=== PATIENT | male | born 1995 | race Caucasian/White ===

== ENCOUNTER 2022-05-14 20:01 | Emergency (ER) | payer OTHER ==
[~2022-05-14] VITALS: Ht 182.9 cm; Wt 98.2 kg
[~2022-05-14 20:01] MED LIST: PENI500T2 PO
[2022-05-14 20:18] VITALS: BP 119/72
[2022-05-14 20:24] LABS: BASOPHILS % (AUTO) 0.7 % (0-1); EOSINOPHILS # (AUTO) 0.3 X10'3 (0-0.9); EOSINOPHILS % (AUTO) 5.7 % (0-6); HEMATOCRIT 43.6 % (42.0-52.0); HEMOGLOBIN 15.3 g/dl (14.0-17.9); LYMPHOCYTES # (AUTO) 1.9 X10'3 (1.1-4.8); MEAN CORPUSCULAR HEMOGLOBIN 32.7 PG (27.0-31.0); MEAN CORPUSCULAR HGB CONC 35.1 g/dL (33.0-36.5); MEAN CORPUSCULAR VOLUME 93.2 FL (78-98); MEAN PLATELET VOLUME 7.1 FL (7.4-10.4); MONOCYTES # (AUTO) 0.6 X10'3 (0-0.9); MONOCYTES % (AUTO) 11.5 % (2-12); NEUTROPHILS # (AUTO) 2.6 X10'3 (1.8-7.7); NEUTROPHILS % (AUTO) 47.1 % (42-75); PLATELET COUNT 192 X10'3 (140-440); RED BLOOD COUNT 4.68 X10'6 (4.70-6.10); RED CELL DISTRIBUTION WIDTH 12.6 % (11.5-14.5); WHITE BLOOD COUNT 5.6 X10'3 (4.5-11.0)
[2022-05-14 20:40] LABS: ALANINE AMINOTRANSFERASE 82 U/L (12-78); ALBUMIN 4.1 G/DL (3.4-5.0); ALBUMIN/GLOBULIN RATIO 1.3 (1.1-1.5); ALKALINE PHOSPHATASE 109 IU/L (46-116); ANION GAP 6 (8-16); ASPARTATE AMINO TRANSFERASE 28 U/L (10-37); BILIRUBIN,TOTAL 0.3 MG/DL (0.1-1.0); BLOOD UREA NITROGEN 15 MG/DL (7-18); BUN/CREATININE RATIO 15.3 (10.0-20.0); CALCIUM 9.1 MG/DL (8.5-10.1); CHLORIDE 104 MMOL/L (99-107); CREATININE 0.98 MG/DL (0.60-1.10); GLUCOSE 107 MG/DL (70-104); POTASSIUM 3.9 MMOL/L (3.5-5.1); SODIUM 141 MMOL/L (135-145); TOTAL CARBON DIOXIDE 31.5 MMOL/L (24-32); TOTAL PROTEIN 7.2 G/DL (6.4-8.2); eGFR > 90 ML/MIN
[2022-05-14 20:46] LABS: MAGNESIUM 1.8 MG/DL (1.5-2.4)
[2022-05-14] MEDS ORDERED: valacyclovir 500mg tablet PO STA (21:50)
[2022-05-14] MEDS ORDERED: gabapentin 400mg capsule PO STA (21:50)
[2022-05-14] MEDS ORDERED: VALA100031 PO (21:50)
[2022-05-14] MEDS ORDERED: GABA-530 PO (21:50)
== END 2022-05-14 22:29 | disposition home or self-care (01) ==
LOC: ER 20:02
DX: B02.9 Zoster without complications (principal); R07.9 Chest pain, unspecified; M79.10 Myalgia, unspecified site; Z79.899 Other long term (current) drug therapy
CPT/HCPCS: 36415; 80053; 83735; 83880; 84484; 85025; 93005; 99284

== ENCOUNTER 2024-07-02 11:54 | Emergency (ER) | payer OTHER ==
[~2024-07-02] VITALS: Ht 182.9 cm; Wt 89.2 kg
[~2024-07-02 11:54] MED LIST changes: +GABA-530 PO; +VALA100031 PO
[2024-07-02 13:10] LABS: BASOPHILS % (AUTO) 0.4 % (0-1); EOSINOPHILS # (AUTO) 0.1 X10'3 (0-0.9); EOSINOPHILS % (AUTO) 1.7 % (0-6); HEMATOCRIT 49.1 % (42.0-52.0); HEMOGLOBIN 16.5 g/dl (14.0-17.9); LYMPHOCYTES # (AUTO) 2.1 X10'3 (1.1-4.8); LYMPHOCYTES % (AUTO) 29.4 % (21-51); MEAN CORPUSCULAR HEMOGLOBIN 31.2 PG (27.0-31.0); MEAN CORPUSCULAR HGB CONC 33.7 g/dL (33.0-36.5); MEAN CORPUSCULAR VOLUME 92.7 FL (78-98); MEAN PLATELET VOLUME 7.3 FL (7.4-10.4); MONOCYTES # (AUTO) 0.5 X10'3 (0-0.9); MONOCYTES % (AUTO) 6.9 % (2-12); NEUTROPHILS # (AUTO) 4.5 X10'3 (1.8-7.7); NEUTROPHILS % (AUTO) 61.6 % (42-75); PLATELET COUNT 243 X10'3 (140-440); RED BLOOD COUNT 5.29 X10'6 (4.70-6.10); RED CELL DISTRIBUTION WIDTH 13.2 % (11.5-14.5); WHITE BLOOD COUNT 7.3 X10'3 (4.5-11.0)
[2024-07-02 13:22] VITALS: BP 122/61; PULSE 51; O2SAT 99
[2024-07-02 13:25] LABS: ALANINE AMINOTRANSFERASE 26 U/L (12-78); ALBUMIN 4.3 G/DL (3.4-5.0); ALBUMIN/GLOBULIN RATIO 1.3 (1.1-1.5); ALKALINE PHOSPHATASE 115 IU/L (46-116); ANION GAP 7 (8-16); ASPARTATE AMINO TRANSFERASE 9 U/L (10-37); BILIRUBIN,TOTAL 0.4 MG/DL (0.1-1.0); BLOOD UREA NITROGEN 11 MG/DL (7-18); BUN/CREATININE RATIO 14.1 (10.0-20.0); CALCIUM 9.5 MG/DL (8.5-10.1); CHLORIDE 107 MMOL/L (99-107); CREATININE 0.78 MG/DL (0.60-1.10); GLUCOSE 96 MG/DL (70-104); LIPASE 180 U/L (16-77); POTASSIUM 4.3 MMOL/L (3.5-5.1); SODIUM 145 MMOL/L (135-145); TOTAL CARBON DIOXIDE 30.8 MMOL/L (24-32); TOTAL PROTEIN 7.7 G/DL (6.4-8.2); eCRCL 153 ML/MIN; eGFR > 90 ML/MIN
--- NOTE | 2024-07-02 13:33 | Physician Documentation ---
History of Present Illness Chief Complaint: Abdominal Pain Stated Complaint: POSS HERNIA Time Seen by MD: 12:59 Primary Medical Doctor: [facility] 29-year-old male presents to the ED with a complaint of a potential hernia in his umbilicus. States while lifting something heavy at his job three or four days ago he felt a tear and has had increased pain and swelling in the umbilical region. [facility] evaluated and they attempted to reduce the suspected hernia causing some bleeding to come out of the umbilicus. Day of Onset: July 02, 2024 Medication Reconciliation Allergies: Coded Allergies: No Known Allergies (Unverified , 07/02/24) Scheduled Amox Tr/Potassium Clavulanate (Augmentin 875-125 Tablet), 1 TAB PO Q12H Penicillin V Potassium* (Penicillin VK*), 500 MG PO Q6H Valacyclovir HCl (Valacyclovir), 1 TAB PO BID Scheduled PRN Gabapentin (Gabapentin), 1 CAP PO Q8H PRN for pain Past Medical History Past Medical History: No Pertinent History Past Surgical History: other Alcohol Use: Rarely Drug Use: none Lives with: Mother Physical Exam Vital Signs: Temperature: 97.6, Source: Temporal, Heart Rate: 59, Respiratory Rate: 18, BP: 148/80, Pulse Oximetry: 98, Weight: 89.150 Physical Exam General: Alert, no apparent distress. Gastrointestinal: Soft, nontender, nondistended. Bowels sounds present. Some discharge present in the umbilicus mild erythema Extremities: Normal range of motion, no deformity. Neurologic: Oriented x4. Psychiatric: Normal mood and affect. Skin: Normal color, warm and dry. No edema, no ecchymosis. Progress Results/Orders Results/Orders Orders - MAX PAZ NP Ultrasound Of Abdomen (07/02/24 13:17) Vital Signs 07/02/24 12:03 Temp 97.6 Pulse 59 Resp 18 B/P (MAP) 148/80 Pulse Ox 98 Laboratory Tests Test 07/02/24 12:56 White Blood Count 7.3 Red Blood Count 5.29 Hemoglobin 16.5 Hematocrit 49.1 Mean Corpuscular Volume 92.7 Mean Corpuscular Hemoglobin 31.2 H Mean Corpuscular Hemoglobin Concent 33.7 Red Cell Distribution Width 13.2 Platelet Count 243 Mean Platelet Volume 7.3 L Neutrophils (%) (Auto) 61.6 Lymphocytes (%) (Auto) 29.4 Monocytes (%) (Auto) 6.9 Eosinophils (%) (Auto) 1.7 Basophils (%) (Auto) 0.4 Neutrophils # (Auto) 4.5 Lymphocytes # (Auto) 2.1 Monocytes # (Auto) 0.5 Eosinophils # (Auto) 0.1 Basophils # (Auto) 0.0 CBC Comment Chemistry Comments Medical Decision Making Findings On did not indicate any signs of break in abdominal wall or any strangulation or incarceration. This time I do not see any reason to consult general surgery.. However based on the mild drainage I noticing his umbilicus and surrounding erythema I am going to place him on antibiotics and advised to follow up with worker's comp provider in the outpatient setting. Departure Disposition: HOME / SELF CARE / HOMELESS Impression: Primary Impression: Abdominal pain Condition: Stable Referrals: NO PRIMARY CARE PROVIDER (PCP) Prescriptions Amox Tr/Potassium Clavulanate (Augmentin 875-125 Tablet) 1 Each Tablet 1 TAB PO Q12H for 10 Days, #20 TAB Prov: MAX PAZ NP 07/02/24 Education Educated: Patient Educated regarding: diagnosis Signature Scribe Signature: f Attestation: The note accurately reflects work and decisions made by me.Max Bermeo NP 07/02/24 18:29 MAX PAZ NP July 02, 2024 13:33
[2024-07-02] MEDS ORDERED: AMOX-117 PO (14:00)
[2024-07-02 14:16] VITALS: TEMP 97.6
[2024-07-02 14:19] VITALS: RESP 16
--- NOTE | 2024-07-02 14:51 | RADIOLOGY REPORT ---
Procedure: US ULTRASOUND OF ABDOMEN 07/02/2024 01:46 PM Indication: umbillical hernia Comparison: None Technique: Sonogram of the umbilical region was obtained utilizing grayscale and color techniques. FINDINGS: No hernia, discrete solid or cystic lesion is identified. No significant change with Valsalva maneuve r. IMPRESSION: No evidence of umbilical hernia.
== END 2024-07-02 14:24 | disposition home or self-care (01) ==
LOC: ER 11:55
DX: R10.9 Unspecified abdominal pain (principal)
CPT/HCPCS: 36415; 76705; 80053; 83690; 85025; 99284